=== PATIENT | male | born 1970 | race Caucasian/White ===

== ENCOUNTER 2017-02-06 01:36 | Emergency (ER) | payer MEDICAID ==
[2017-02-06 03:25] VITALS: BP 121/79
== END 2017-02-06 03:25 | disposition left against medical advice (07) ==
LOC: ED 01:36
DX: Z53.21 Procedure and treatment not carried out due to patient leaving prior to being seen by health care provider (principal)

== ENCOUNTER 2018-10-07 17:25 | Emergency (ER) | payer MEDICAID ==
[~2018-10-07] VITALS: Ht 177.8 cm; Wt 110.7 kg
[2018-10-07 17:29] VITALS: Ht 177.8 cm; Wt 110.7 kg
[2018-10-07 19:43] VITALS: BP 123/72
== END 2018-10-07 19:31 | disposition home or self-care (01) ==
LOC: ED 17:25
DX: S16.1XXA Strain of muscle, fascia and tendon at neck level, initial encounter (principal); F41.9 Anxiety disorder, unspecified; V43.52XA Car driver injured in collision with other type car in traffic accident, initial encounter; Y93.I9 Activity, other involving external motion; Y92.413 State road as the place of occurrence of the external cause; Y99.8 Other external cause status
CPT/HCPCS: J1885